=== PATIENT | female | born 1990 | race Two or more races ===

== ENCOUNTER 2019-09-09 15:22 | Emergency (ER) | payer BC ==
[2019-09-09 15:36] VITALS: BP 136/93
--- NOTE | 2019-09-09 17:02 | ED ---
Throat Pain/Nasal Congestion - HPI Summary HPI Summary: Patient present to the ED with R upper molar pain and bleeding from an extraction on . She states the bleeding has continued and is mild. Denies any pain. Called dentist, but they were not open. At this time on arrival, bleeding has stopped but states she still wanted to get "checked out." She denies any fevers, sweats, chills. Denies any dizziness, headache, pain to the molar, pain to the jaw or other teeth. - History of Current Complaint Chief Complaint: EDDentalPain Time Seen by Provider: 09/09/19 16:48 Hx Obtained From: Patient Onset/Duration: Sudden Onset Severity: Mild Associated Signs And Symptoms: Positive: Negative - Allergies/Home Medications Allergies/Adverse Reactions: Allergies Allergy/AdvReac Type Severity Reaction Status Date / Time No Known Allergies Allergy Verified 09/09/19 15:36 PMH/Surg Hx/FS Hx/Imm Hx Previously Healthy: Yes - Immunization History Hx Pertussis Vaccination: No Immunizations Up to Date: Yes Infectious Disease History: No Infectious Disease History: Denies: Traveled Outside the in Last 30 Days - Social History Occupation: Unemployed Lives: With Family Alcohol Use: None Hx Substance Use: No Substance Use Type: Reports: None Hx Tobacco Use: No Review of Systems Negative: Fever, Chills, Fatigue, Skin Diaphoresis ENT: Other - bleeding from molar Negative: Palpitations, Chest Pain Negative: Shortness Of Breath, Cough Genitourinary: Negative Skin: Negative All Other Systems Reviewed And Are Negative: Yes Physical Exam Triage Information Reviewed: Yes Vital Signs On Initial Exam: Initial Vitals Temp Pulse Resp BP Pulse Ox 98.6 F 82 16 136/93 100 09/09/19 15:32 09/09/19 15:32 09/09/19 15:32 09/09/19 15:32 09/09/19 15:32 Vital Signs Reviewed: Yes Appearance: Positive: Well-Appearing, Well-Nourished Skin: Positive: Skin Color Reflects Adequate Perfusion Dental: Positive: Other - sutures in place - no bleeding Neck: Positive: Supple, No Lymphadenopathy Respiratory/Lung Sounds: Positive: Clear to Auscultation, Breath Sounds Present Cardiovascular: Positive: RRR, Pulses are Symmetrical in both Upper and Lower Extremities Musculoskeletal: Positive: Normal, Strength/ROM Intact Neurological: Positive: Alert, Oriented to Person Place, Time Psychiatric: Positive: Normal Procedures - Sedation Patient Received Moderate/Deep Sedation with Procedure: No Diagnostics - Vital Signs Vital Signs Temp Pulse Resp BP Pulse Ox 09/09/19 15:32 98.6 F 82 16 136/93 100 - Laboratory Lab Statement: Any lab studies that have been ordered have been reviewed, and results considered in the medical decision making process. EENT Course/Dx - Course Course Of Treatment: This patient is evaluated for right upper molar bleeding from extraction on . No bleeding on exam. Pt stable. VS stable. Sutures in place. Encouraged f/u with dentist if sxs persist. Given gauze if bleed reoccurs. - Differential Diagnoses Differential Diagnoses: Other - molar bleeding - Diagnoses Provider Diagnoses: Status post wisdom tooth extraction Discharge ED - Sign-Out/Discharge Documenting (check all that apply): Patient Departure - Discharge Plan Condition: Stable Disposition: HOME Referrals: No Primary Care Phys,NOPCP [Primary Care Provider] - Additional Instructions: Use gauze to the area - pack and wait for approximately 10- minutes and assess if bleeding has ceased If the area continues to bleed - you may use the surgicel - keep on the area for about 15 minutes The area may bleed for a few days and this is common following a dental procedure. You sutures are intact and do not appear to be causing the bleeding please call your dentist for a follow up - Billing Disposition and Condition Condition: STABLE Disposition: Home - Attestation Statements Provider Attestation: I was available for consult. This patient was seen by the [facility]. The patient was not presented to, seen by, or examined by me. Fran Graf MD
== END 2019-09-09 17:13 | disposition home or self-care (01) ==
LOC: ED 15:22
DX: K08.409 Partial loss of teeth, unspecified cause, unspecified class (principal)
CPT/HCPCS: 99281